=== PATIENT | male | born 1960 | race Caucasian/White ===

== ENCOUNTER 2018-03-31 08:50 | Day surgery (SDC) | payer BC ==
[2018-03-26 12:02] LABS: HEMATOCRIT 46.5 % (37.9-51.0); HEMOGLOBIN 15.7 g/dL (13.5-17.0); MEAN CORPUSCULAR HEMOGLOBIN 30.7 pg (27.0-33.4); MEAN CORPUSCULAR HGB CONC 33.8 g/dL (32.0-36.0); MEAN CORPUSCULAR VOLUME 91 fl (80-97); PLATELET COUNT 292 10^3/uL (150-450); RED BLOOD COUNT 5.14 10^6/uL (4.35-5.55); RED CELL DISTRIBUTION WIDTH 12.9 % (11.5-14.0)
--- NOTE | 2018-03-26 21:44 | EKG REPORT ---
SEVERITY:- OTHERWISE NORMAL ECG - SINUS RHYTHM LEFT AXIS DEVIATION : Confirmed by: Viv Nolasco MD 26-Mar-2018 21:43:47
[~2018-03-31 08:50] MED LIST: ACETAMINOPHEN 325 MG TABLET PO PRN; LACTATED RINGERS 1000 ML IV PRN; LIDOCAINE 0.5% INJ-PF (5 MG/ML) 50 ML SDV SUBCUT PRN; RINGERS SOLUTION,LACTATED 1,000 ML IV PRN
[2018-03-31] MEDS ORDERED: MIDAZOLAM 2 MG/2 ML INJ ONE (10:56)
[2018-03-31] MEDS ORDERED: PROPOFOL INJ 200 MG/20 ML VIAL IV ONE (10:56)
[2018-03-31] MEDS ORDERED: DIPHENHYDRAMINE HCL 50 MG/ML VIAL IV PRN (11:11)
[2018-03-31] MEDS ORDERED: MEPERIDINE HCL/PF INJ 25 MG/1 ML DISP.SYRIN IV PRN (11:11)
[2018-03-31] MEDS ORDERED: PROMETHAZINE HCL INJ 25 MG/1 ML VIAL IV PRN ×2 (11:11)
[2018-03-31] MEDS ORDERED: ONDANSETRON HCL INJ/PF 4 MG/2 ML SDV IV PRN (11:11)
[2018-03-31] MEDS ORDERED: FENTANYL CITRATE INJ/PF 100 MCG/2 ML AMPUL IV PRN ×3 (11:11)
[2018-03-31] MEDS ORDERED: OXYCODONE-ACETAMINOPHEN 5-325 MG TABLET PO PRN ×2 (11:11)
--- NOTE | 2018-03-31 11:41 | Operative Report ---
Operative Report DATE OF SURGERY: 03/31/18 PREOPERATIVE DIAGNOSIS: 1. History of ulcerative colitis POSTOPERATIVE DIAGNOSIS: Same with. 1. Scattered diverticulosis of the left colon. 2. Procto-sigmoid colitis, mild to moderate OPERATION: 1. Total colonoscopy to cecum with photodocumentation. 2. Forceps biopsies of right colon, left colon, and rectosigmoid region SURGEON: MADHU WASHINGTON ANESTHESIA: LMAC TISSUE REMOVED OR ALTERED: Multiple cold forceps biopsies COMPLICATIONS: None ESTIMATED BLOOD LOSS: Scant INTRAOPERATIVE FINDINGS: See below PROCEDURE: Obtaining informed consent the patient was taken from the preoperative holding area to the main endoscopy suite where monitoring devices were attached to the patient. Plan and surgical timeout were conducted The patient was placed in the left lateral decubitus position with knees to chest. A perianal examination was performed. There was no visible or palpable anorectal pathology. Sphincter tone was felt to be normal. The flexible adult colonoscope was advanced through the anal rectal canal, all the way to the cecum. Transillumination of the cecum was achieved and the ileocecal valve, the appendiceal orifice and transillumination of the anterior abdominal wall. This was an excellent study on the well-prepped bowel. The colonoscope was withdrawn slowly and methodically checked and the mucosa carefully. There was no evidence of tumor, stricture, bleeding; the sigmoid colon extending down into the rectum noted for mild to moderate inflammation in a circumferential fashion, without stricture, ulceration or mass-effect or fissures. Photos taken in random biopsy obtained from rectosigmoid junction approximately 20 cm from anal verge. There were scattered diverticulosis of left colon ; The scope was slowly withdrawn through the anal rectal canal. Complete visualization of the rectum was achieved with photodocumentation. The scope was withdrawn to the patient's anus. The patient tolerated the procedure well and was taken to the recovery area in stable condition. Surveillance colonoscopy will be recommended based on the pathologic findings.
--- NOTE | 2018-03-31 11:42 | Discharge Summary ---
Discharge Summary (SDC) - Discharge Final Diagnosis: screening colonoscopy Date of Surgery: 03/31/18 Discharge Date: 03/31/18 Condition: Stable Treatment or Instructions: You may resume normal diet and activity after surgery. Follow up at [facility] with Dr. Short in 10 days. Call clinic sooner with questions or concerns. Referrals: NUNO BROWN MD [Primary Care Provider] - Discharge Diet: As Tolerated Discharge Activity: Activity As Tolerated Report the Following to Your Physician Immediately: Nausea, Vomiting, Increase in Pain, Fever over 101 Degrees, Redness
[2018-03-31 13:37] VITALS: BP 125/70
== END 2018-03-31 13:10 | disposition home or self-care (01) ==
LOC: OROUT 08:50
PROVIDERS: ATTEND Surgery
DX: Z12.11 Encounter for screening for malignant neoplasm of colon (principal); K57.30 Diverticulosis of large intestine without perforation or abscess without bleeding; K52.9 Noninfective gastroenteritis and colitis, unspecified; K63.89 Other specified diseases of intestine; K51.90 Ulcerative colitis, unspecified, without complications; K62.89 Other specified diseases of anus and rectum; E78.00 Pure hypercholesterolemia, unspecified; I10 Essential (primary) hypertension; Z87.19 Personal history of other diseases of the digestive system; Z86.73 Personal history of transient ischemic attack (TIA), and cerebral infarction without residual deficits; Z79.899 Other long term (current) drug therapy
CPT/HCPCS: 45380; 93005; 36415; 85027; 88305 ×2; 93010; J2250; J2704; 811